=== PATIENT | female | born 1995 | race Caucasian/White ===

== ENCOUNTER 2023-12-19 18:27 | Emergency (ER) | payer MEDICAID, SELFPAY ==
[2023-12-19 18:42] VITALS: BP 143/99; PULSE 80; O2SAT 99; BMI 25.8
--- NOTE | 2023-12-19 20:51 | ED.GENADUL1 ---
HPI HPI - General Adult General Chief complaint: Nausea/Vomiting/Diarrhea Stated complaint: DIARRHEA Time Seen by Provider: 12/19/23 20:35 Source: patient Mode of arrival: walk-in Limitations: no limitations History of Present Illness HPI narrative: Patient is a 28-year-old female presents to the ER with concerns of intermittent abdominal pain and diarrhea for the past 2 weeks. Patient states 2 weeks ago she developed diarrhea severe up to 30 times in 1 day, it has since lessened but she has not had a normal bowel movement since. She reports anytime she attempts to eat or drink liquid brown cloud. Diarrhea is expressed. She reports occasional pain in epigastric/mid abdomen preceding events cramping. She had an extended wait in the waiting room, and reports abdominal pain previously has recently subsided. Patient denies any chest pain or shortness of breath, admits to feeling dehydrated. She reports moderate alcohol use previously but stopped since experiencing diarrhea for the past 2 weeks. She denies any recent Travels out of the country, denies any bad foods. Denies ill exposures. She does not work in healthcare. Patient cannot recall any antibiotic use within the last 2 months. She is currently on her menstrual cycle. Location: Reports abdomen Quality: Reports aching Pain Consistency: Reports intermittent and colicky Exacerbating factors: Reports eating Related Data Home Medications ?Medication ?Instructions ?Recorded ?Confirmed escitalopram oxalate 20 mg tablet mg 12/19/23 levonorgestrel 0.15 mg-ethinyl tab 12/19/23 estradiol 0.03 mg tablet ([place] (28)) Previous Rx's ?Medication ?Instructions ?Recorded hyoscyamine sulfate 0.125 mg 0.125 mg PO TID PRN dyspepsia #10 12/19/23 tablet (Levsin) tabs ondansetron HCl 4 mg tablet 4 mg PO Q6H PRN nausea and 12/19/23 vomiting #12 tabs Allergies Allergy/AdvReac Type Severity Reaction Status Date / Time Sulfa (Sulfonamide Allergy Mild Verified 12/19/23 18:41 Antibiotics) Opioid HPI Opioid Management Most Recent Opioid Data: Last Pain Scale 2 12/19/23 18:45 Review of Systems ROS Constitutional Reports: fever (Initial onset, has since subsided. 2 wks ago) and fatigue Eyes Denies: change in vision Ears, nose, mouth, and throat Denies: throat pain or neck pain Cardiovascular Denies: chest pain or palpitations Respiratory Denies: shortness of breath, cough or wheezing Gastrointestinal Reports: abdominal pain, nausea, vomiting ( few episodes with initial symptom onset) and diarrhea; Denies: coffee grounds in vomit, blood in stool or mucus in stool Genitourinary Denies: painful urination Musculoskeletal Denies: back pain, neck pain, extremity pain, extremity swelling or joint pain Integumentary/Breast Denies: rash Neurological Denies: headache or numbness in extremities Psychiatric Denies: anxiety Hematologic/Lymphatic Denies: easy bruising Allergic/Immunologic Denies: hives Exam Narrative Exam Narrative: Nurses notes and vital signs reviewed and patient is not hypoxic. General: The patient appears well and in no apparent distress. Patient is resting comfortably on cart. Skin: Warm, dry, no pallor noted. Head: Normocephalic, atraumatic Neck: Supple, trachea mid-line, no tenderness, no lymphadenopathy Eye: Pupils are equal, round and reactive to light, EOMI Ears, Nose, Mouth, and Throat: Moist mucous membranes, external exam unremarkable. Cardiovascular: Regular Rate and Rhythm Respiratory: Patient is in no distress, no accessory muscle use, lungs are clear to auscultation, no wheezing, rales or rhonchi. Chest Wall: no tenderness Back: non-tender, no CVA tenderness Musculoskeletal: normal ROM, no tenderness, no swelling GI: Normal bowel sounds, no tenderness to palpation, no masses appreciated. No rebound, guarding, or rigidity noted. Neurological: A&O x4 Psychiatric: Cooperative Constitutional Vital Signs, click to edit/add: Last Vital Signs Pulse 80 12/19/23 18:42 Resp 16 12/19/23 18:42 BP 143/99 H 12/19/23 18:42 Pulse Ox 99 12/19/23 18:42 O2 Del Method Room Air 12/19/23 18:42 Course Vital Signs Vital signs: Vital Signs Pulse Rate 80 12/19/23 18:42 Respiratory Rate 16 12/19/23 18:42 Blood Pressure 143/99 H 12/19/23 18:42 Pulse Oximetry 99 12/19/23 18:42 Oxygen Delivery Method Room Air 12/19/23 18:42 Pulse Rate 80 12/19/23 18:42 Respiratory Rate 16 12/19/23 18:42 Blood Pressure 143/99 H 12/19/23 18:42 Pulse Oximetry 99 12/19/23 18:42 Oxygen Delivery Method Room Air 12/19/23 18:42 Medical Decision Making MDM Narrative Medical decision making narrative: Abdomen nonsurgical, patient feels she can readily supply a sample for evaluation of diarrhea. She denies blood or mucus. She does not express any known risk factors but reports symptoms for almost more than 14 days with initial fever at onset. Patient has been trying multiple [id number] medications for symptom relief without improvement. She has seen in urgent care. Her family doctor with conservative measures before presentation to the ER this evening. Patient reevaluated, no return of epigastric abdominal pain. Patient's abdomen nonsurgical. Labs reviewed.Patient given 50 mEq of potassium. Cultures are pending with her stool. She is recommended to follow-up with general surgery or GI to discuss possible colonoscopy pending culture results. Patient may return to the ER if symptoms worsen. Recommend that she use Pepto-Bismol as directed to help with symptoms. The patient is to followup with primary care physician in next 1-3 days or to return to the emergency department should any of the signs or symptoms worsen or new symptoms develop. Patient had questions answered. The patient agrees with the following Diagnosis and Treatment plan and the patient will be discharged home. Lab Data Lab results reviewed: Yes I reviewed the patient's lab results Labs: Lab Results 12/19/23 Range/Units 20:40 WBC 7.4 (4.0-11.0) 10^3/uL RBC 4.47 (4.20-5.40) 10^6/uL Hgb 13.5 (12.0-16.0) g/dL Hct 42.2 (36.0-48.0) % MCV 94.4 (81.0-99.0) fL MCH 30.2 (26.7-34.0) pg MCHC 32.0 (29.9-35.2) g/dL RDW 12.9 (11.0-15.0) % Plt Count 284 (150-450) 10^3/uL MPV 10.5 (9.5-13.5) fL Neut % (Auto) 57.8 (43.0-75.0) % Lymph % (Auto) 32.7 (20.5-60.0) % [place] % (Auto) 8.3 (1.7-12.0) % Eos % (Auto) 0.8 L (0.9-7.0) % Baso % (Auto) 0.1 L (0.2-2.0) % Neut # (Auto) 4.3 (1.4-6.5) 10^3/uL Lymph # (Auto) 2.4 (1.2-3.8) 10^3/uL [place] # (Auto) 0.6 (0.3-0.8) 10^3/uL Eos # (Auto) 0.1 (0.0-0.7) 10^3/uL Baso # (Auto) 0.0 (0.0-0.1) 10^3/uL Abs Immat Gran (auto) 0.02 (0.00-0.03) 10^3/uL Imm/Tot Granulo (auto) 0.3 (0.0-0.5) % Sodium 136 (136-145) mmol/L Potassium 3.2 L (3.5-5.1) mmol/L Chloride 100 (98-107) mmol/L Carbon Dioxide 24.9 (21.0-32.0) mmol/L Anion Gap 14.3 BUN 18.0 (7.0-18.0) mg/dL Creatinine 0.90 (0.55-1.02) mg/dL Est GFR ( Amer) >60 (>=60) Est GFR (Non-Af Amer) >60 (>=60) BUN/Creatinine Ratio 20.0 Glucose 84 (74-106) mg/dL Lactate 0.9 (0.4-2.0) mmol/L Calcium 9.6 (8.5-10.1) mg/dL Total Bilirubin 0.4 (0.2-1.0) mg/dL AST 21 (15-37) U/L ALT 28 (14-59) U/L Alkaline Phosphatase 67 (46-116) U/L Total Protein 8.6 H (6.4-8.2) g/dL Albumin 4.3 (3.4-5.0) g/dL Globulin 4.3 g/dL Albumin/Globulin Ratio 1.0 Amylase 42 (25-115) U/L Lipase 25.0 (16.0-77.0) U/L TSH & Free T4 Interp 2.981 (0.358-3.740) uIU/mL Serum HCG, Qual Negative (NEGATIVE) Urine Color Yellow (YELLOW) Urine Clarity Clear (CLEAR) Urine pH 6.0 (5.0-9.0) Ur Specific [place] >=1.030 A (1.005-1.025) Urine Protein 30 A (NEG/TRACE) mg/dL Urine Glucose (UA) Negative (NEGATIVE) mg/dL Urine Ketones Negative (NEGATIVE) mg/dL Urine Occult Blood Large A (NEGATIVE) Urine Nitrite Negative (NEGATIVE) Urine Bilirubin Small A (NEGATIVE) Urine Urobilinogen 0.2 (0.2-1.0) EU/dL Ur Leukocyte Esterase Negative (NEGATIVE) Urine RBC 0-2 (0-2) #/HPF Urine WBC 5-10 A (NONE SEEN) #/HPF Ur Squamous Epith Cells Moderate A (NONE/RARE) #/LPF Urine Crystals Seen A (None Seen) #/HPF Amorphous Sediment Many Urine Bacteria Large A (NONE SEEN) #/HPF Urine Casts None seen (NONE SEEN) #/LPF Urine Mucus Large A (NONE SEEN) Ur Culture Indicated? Yes Discharge Plan Discharge Stand Alone Forms: Portal Instructions Chief Complaint: Nausea/Vomiting/Diarrhea Clinical Impression: Diarrhea Patient Disposition: Home, Self-Care Time of Disposition Decision: 21:53 Condition: Good Prescriptions / Home Meds: New ondansetron HCl 4 mg tablet 4 mg PO Q6H PRN (Reason: nausea and vomiting) Qty: 12 0RF hyoscyamine sulfate [Levsin] 0.125 mg tablet 0.125 mg PO TID PRN (Reason: dyspepsia) Qty: 10 0RF No Action levonorgestrel-ethinyl estrad [[place] (28)] 0.15-0.03 mg tablet escitalopram oxalate 20 mg tablet Print Language: Latvian Instructions: Acute Diarrhea (ED), Nutrition Tips for Relief of Diarrhea (ED) Referrals: Christiano Sherman DO [Physician] - As soon as possible Rafael Bush MD [Primary Care Provider] - As soon as possible Jaime Barbour MD [Physician] - As soon as possible
[2023-12-19 20:55] LABS: Basophils Percent Auto 0.1 % (0.2-2.0); Eosinophils Absolute Auto 0.1 10^3/uL (0.0-0.7); Eosinophils Percent Auto 0.8 % (0.9-7.0); Hematocrit 42.2 % (36.0-48.0); Hemoglobin 13.5 g/dL (12.0-16.0); Immature Granulocytes Abs Auto 0.02 10^3/uL (0.00-0.03); Immature Granulocytes Pct Auto 0.3 % (0.0-0.5); Lymphocytes Absolute Auto 2.4 10^3/uL (1.2-3.8); Lymphocytes Percent Auto 32.7 % (20.5-60.0); Mean Corpuscular Hemoglobin 30.2 pg (26.7-34.0); Mean Corpuscular Volume 94.4 fL (81.0-99.0); Mean Platelet Volume 10.5 fL (9.5-13.5); Monocytes Absolute Auto 0.6 10^3/uL (0.3-0.8); Monocytes Percent Auto 8.3 % (1.7-12.0); Neutrophils Absolute Auto 4.3 10^3/uL (1.4-6.5); Neutrophils Percent Auto 57.8 % (43.0-75.0); Platelet Count 284 10^3/uL (150-450); Red Blood Count 4.47 10^6/uL (4.20-5.40); Red Cell Distribution Width 12.9 % (11.0-15.0); White Blood Count 7.4 10^3/uL (4.0-11.0)
[2023-12-19 20:56] LABS: Bilirubin Urine SMALL (NEGATIVE); Blood Urine LARGE (NEGATIVE); Clarity Urine CLEAR (CLEAR); Color Urine YELLOW (YELLOW); Glucose Urine UA NEGATIVE (NEGATIVE); Ketones Urine NEGATIVE (NEGATIVE); Leukocyte Esterase Urine NEGATIVE (NEGATIVE); Nitrite Urine NEGATIVE (NEGATIVE); Protein Urine 30 mg/dL (NEG/TRACE); Specific Gravity Urine >=1.030 (1.005-1.025); Urobilinogen Urine 0.2 EU/dL (0.2-1.0)
[2023-12-19 20:58] LABS: Urine Microscopic Indicated YES
[2023-12-19] MEDS: FAMOTIDINE/PF 20 MG/2 ML VIAL IV (21:00)
[2023-12-19] MEDS: 0.9 % SODIUM CHLORIDE 1,000 ML 999 ML IV (21:00)
[2023-12-19] MEDS: ONDANSETRON PF 4 MG/2 ML VIAL IV (21:00)
[2023-12-19 21:08] LABS: Amorphous Sediment Urine MANY; Bacteria Urine LARGE #/HPF (NONE SEEN); Cast Seen? NONE SEEN #/LPF (NONE SEEN); Crystals Seen? Seen #/HPF (None Seen); HCG Qualitative NEGATIVE (NEGATIVE); Internal Control Within Normal Limits; Mucus Urine LARGE (NONE SEEN); RBC Urine 0-2 #/HPF (0-2); Squamous Epithelial Cell Urine MODERATE #/LPF (NONE/RARE); Urine Culture Indicated YES
[2023-12-19 21:09] LABS: Amylase 42 U/L (25-115)
[2023-12-19 21:16] LABS: Lactate/Lactic Acid 0.9 mmol/L (0.4-2.0)
[2023-12-19 21:22] LABS: TSH W/ REFLEX FT4 2.981 uIU/mL (0.358-3.740)
[2023-12-19 21:23] LABS: Alanine Aminotransferase 28 U/L (14-59); Albumin Level 4.3 g/dL (3.4-5.0); Alkaline Phosphatase 67 U/L (46-116); Anion Gap 14.3; Aspartate Amino Transferase 21 U/L (15-37); Bilirubin Total 0.4 mg/dL (0.2-1.0); Calcium 9.6 mg/dL (8.5-10.1); Carbon Dioxide 24.9 mmol/L (21.0-32.0); Chloride 100 mmol/L (98-107); Estimated GFR (African America >60 (>=60); Estimated GFR (Non-African Ame >60 (>=60); Globulin 4.3 g/dL; Glucose 84 mg/dL (74-106); Potassium 3.2 mmol/L (3.5-5.1); Sodium 136 mmol/L (136-145); Total Protein 8.6 g/dL (6.4-8.2)
[2023-12-19] MEDS: POTASSIUM BICARBONATE/CIT 25 MEQ TABLET EFF 50 MEQ PO (22:09)
[2023-12-19 22:13] VITALS: BP 126/81; PULSE 72; O2SAT 99
[2023-12-20 13:13] LABS: C. Difficile PCR NEGATIVE (NEGATIVE)
[2023-12-22 13:08] LABS: Cryptosporidium EIA Negative (Negative); Giardia lamblia Ag, EIA Positive (Negative)
== END 2023-12-19 22:19 | disposition home or self-care (01) ==
PROVIDERS: Personal Emergency Response Attendant; Emergency Provider Emergency Medicine; PCP Family Medicine
DX: R19.7 Diarrhea, unspecified (principal)
CPT/HCPCS: 36415; 80053; 81001; 82150; 83605; 83631; 83690; 84443; 84703; 85025; 87045; 87046; 87086; 87150; 87177; 87186; 87209; 87427; 87493; 96361; 96374; 96375; 99284; J2405